=== PATIENT | female | born 1990 | race Caucasian/White ===

== ENCOUNTER 2022-05-04 19:55 | Inpatient (IN) ==
[2022-05-04] MEDS ORDERED: Dinoprostone 10 MG VAG.SUPP VAGINAL ONE (20:45)
[2022-05-04] MEDS ORDERED: Buffered Lidocaine 1% SYRIN 1 ml INTRADERM ONE (20:45)
[2022-05-04] MEDS ORDERED: Promethazine INJ(RESTRICTED) 25 MG/ML 1 ml VIAL IV PRN (22:06)
[2022-05-04] MEDS ORDERED: Morphine 10 MG/ML VIAL (1 ml) IV ONE (22:06)
[2022-05-04 22:35] LABS: Urine Benzodiazepine Screen None Detected (None Detect); Urine Cannabinoids Screen None Detected (None Detect); Urine Opiates Screen None Detected (None Detect)
[2022-05-05] MEDS ORDERED: Lactated Ringers 1000 ml BAG 1,000 ML IV ONE (08:58)
[2022-05-05] MEDS ORDERED: Buffered Lidocaine 1% SYRIN 1 ml INTRADERM ONE (08:58)
[2022-05-05] MEDS ORDERED: Lactated Ringers 1000 ml BAG 1,000 ML IV SCH (09:00)
[2022-05-05] MEDS ORDERED: miSOPROStol 100 mcg TAB VAGINAL ONE ×4 (10:11→19:03)
[2022-05-05 11:30] LABS: ABS Lymphocytes 1.8 10^3/ul (1.0-4.8); ABS Monocytes 0.6 10^3/ul (0-0.8); Eosinophil % 0.3 %; Hematocrit 39 % (35-47); Hemoglobin 13.3 g/dL (12.0-16.0); Lymphocyte % 19.4 %; Mean Corpuscular HGB Conc 34 g/dL (31-36); Mean Corpuscular Hemoglobin 31 pg (27-31); Mean Corpuscular Volume 89 fL (80-97); Platelet Count 195 10^3/uL (150-450); Red Blood Count 4.32 10^6 /uL (3.70-4.87); Red Cell Distribution Width 13 % (10-15); White Blood Count 9.5 10^3/uL (3.5-10.8)
[2022-05-05] MEDS ORDERED: Morphine 10 MG/ML VIAL (1 ml) IM ONE (23:15)
[2022-05-06] MEDS ORDERED: Lidocaine/Epinephrin 1.5%/200 5 ML AMP INJ ONE ×2 (04:08→04:38)
[2022-05-06] MEDS ORDERED: OBEPIDURAL (200 ML) 200 ML EPIDURAL ONE (04:08)
[2022-05-06] MEDS ORDERED: fentaNYL 100 mcg/2 ml 50 MCG/ML VIAL ONE (05:17)
[2022-05-06] MEDS ORDERED: Lactated Ringers 1000 ml BAG 500 ML IV PRN (05:33)
[2022-05-06] MEDS ORDERED: Lactated Ringers 1000 ml BAG 1,000 ML IV ONE (05:33)
[2022-05-06] MEDS ORDERED: Phenylephrine 40 mcg/mL 10mL (400mcg) SYRINGE IV PUSH PRN ×2 (05:33)
[2022-05-06] MEDS ORDERED: Sodium Citrate/Citric Acid LIQ 15 ML UDC PO PRN (05:33)
[2022-05-06] MEDS ORDERED: OBEPIDURAL (200 ML) 200 ML EPIDURAL SCH (06:00)
[2022-05-06] MEDS ORDERED: Lactated Ringers 1000 ml BAG 1,000 ML IV SCH ×3 (06:00→16:00)
[2022-05-06 07:14] LABS: Urine Benzodiazepine Screen None Detected (None Detect); Urine Cannabinoids Screen None Detected (None Detect); Urine Opiates Screen Presumptive Positive (None Detect)
[2022-05-06 07:22] LABS: Urine Appearance Cloudy; Urine Bilirubin Negative (Negative); Urine Blood Negative (Negative); Urine Color Yellow; Urine Glucose Negative (Negative); Urine Ketones 1+ (Negative); Urine Nitrite Negative (Negative); Urine Protein 1+(30 mg/dL) (Negative); Urine Specific Gravity 1.019 (1.002-1.030); Urine Urobilinogen Negative (Negative)
[2022-05-06 07:28] LABS: Urine Red Blood Cell Trace(0-2/hpf) (Absent); Urine Squamous Epithelial Cell Present (Absent); Urine White Blood Cell Trace(0-5/hpf) (Absent)
[2022-05-06] MEDS ORDERED: Witch Hazel PAD JAR TOPICAL PRN (15:17)
[2022-05-06] MEDS ORDERED: Glycerin ADULT 2.4 gm SUPP PR PRN (15:17)
[2022-05-06] MEDS ORDERED: Dibucaine 1% OINT 28.35 GM TUBE PR PRN (15:17)
[2022-05-06] MEDS ORDERED: Oxytocin in LR 20 UNITS/1,000 ML BAG IVPB SCH (16:00)
[2022-05-07 06:48] LABS: ABS Eosinophils 0.1 10^3/ul (0-0.6); ABS Lymphocytes 2.3 10^3/ul (1.0-4.8); ABS Neutrophils 9.6 10^3/ul (1.5-7.7); Eosinophil % 0.7 %; Hematocrit 34 % (35-47); Hemoglobin 11.6 g/dL (12.0-16.0); Lymphocyte % 17.5 %; Mean Corpuscular HGB Conc 35 g/dL (31-36); Mean Corpuscular Hemoglobin 31 pg (27-31); Mean Corpuscular Volume 90 fL (80-97); Platelet Count 179 10^3/uL (150-450); Red Blood Count 3.74 10^6 /uL (3.70-4.87); Red Cell Distribution Width 13 % (10-15); White Blood Count 13.1 10^3/uL (3.5-10.8)
[2022-05-07 12:21] VITALS: BP 122/86
[2022-05-07 13:45] LABS: Varicella-Zoster IgG Antibody Equivocal
== END 2022-05-07 17:55 | disposition home or self-care (01) | DRG 560 ==
LOC: MCHOBOUT 19:55 → MCHOB 05-05 08:46
PROVIDERS: ADMIT Obstetrics & Gynecology; ATTEND Obstetrics & Gynecology